=== PATIENT | female | born 2005 | race Caucasian/White ===

== ENCOUNTER 2023-08-30 19:55 | Emergency (ER) | payer BC, SELFPAY ==
[2023-08-30 20:01] VITALS: BP 109/72; PULSE 63; RESP 16; TEMP 36.9; O2SAT 100
--- NOTE | 2023-08-30 20:08 | ED.URI ---
HPI - URI/Sore Throat General Chief Complaint: Upper Respiratory Infection Stated Complaint: CHEST PAIN/LIGHT HEADED/NAUSEA Time Seen by Provider: 08/30/23 20:08 Source: patient Mode of arrival: ambulatory Limitations: no limitations History of Present Illness HPI Narrative: 18 yo F presents with c/o upset stomach, headache, nausea, fatigue, chills, feverish, pain to center of chest all day. Took ibuprofen approx. 2 hrs ago. States if she holds her hand against her chest it makes her feel better. Denies SOB. hx of sports induced asthma. took inhaler prior to soccer practice today but never experienced any asthma complications. Denies congestion, sore throat and cough. States notices CP more when sitting. Attended soccer practice tonight and states had no CP there. All systems reviewed and negative except as noted above. Related Data Home Medications Medication Instructions Recorded Confirmed albuterol sulfate 90 mcg/actuation 2 puff inhalation PRN PRN Wheezing 08/30/23 08/30/23 aerosol inhaler (Ventolin HFA) Allergies Allergy/AdvReac Type Severity Reaction Status Date / Time No Known Allergies Allergy Verified 08/30/23 20:07 Review of Systems Review of Systems: CONSTITUTIONAL: Reports fever, chills, or sweats. EYES: Denies visual changes, redness, or discharge. ENT: Denies rhinorrhea, congestion, sore throat, or otalgia. CARDIOVASCULAR: Denies chest pain, palpitations, or edema. RESPIRATORY: Denies cough or dyspnea. GASTROINTESTINAL: Denies abdominal pain. Reports upset stomach, nausea. Denies vomiting, or diarrhea. GENITOURINARY: Denies dysuria or hematuria. SKIN: Denies rash or itching. MUSCULOSKELETAL: Denies back pain, joint pain, or myalgia. NEUROLOGIC: Reports headache. Denies numbness, or weakness. PSYCHIATRIC: Denies anxiety or depression. All other systems reviewed are negative, except as documented in HPI. PMFSH Comments At time of signature, agree with nursing past medical, surgical, social and family history. There is no relevant family history pertinent to the presenting complaint. Exam Narrative: GENERAL: This is a well-nourished, well-developed patient, in no apparent distress. HEAD: normocephalic, atraumatic. EYES: PERRL. Sclera clear/white. Vision is grossly intact. EARS: External ears normal, auditory canals clear and without drainage, TMs normal without perforation. Hearing grossly intact. NOSE: External nose normal with no obvious nasal discharge, nares without redness, no rhinorrhea. THROAT: Mucous membranes moist, posterior pharynx clear. NECK: Neck supple, non-tender without lymphadenopathy, masses or thyromegaly. CARDIOVASCULAR: Regular rate and rhythm without murmurs, gallops, or rubs. RESPIRATORY: Clear to auscultation. Breath sounds equal bilaterally. No wheezes, rales, or rhonchi. SKIN: warm, Dry, intact with no suspicious lesions or rash, good texture and turgor. NEURO: awake, alert, and oriented to person, place and time. There were no obvious focal neurologic abnormalities. EXTREMITIES: No joint tenderness, effusion, or edema noted. Course Course Level of Care: Express Care Visit Vital Signs Vital signs: Vital Signs Temperature 36.9 C 08/30/23 20:01 Pulse Rate 63 08/30/23 20:01 Respiratory Rate 16 08/30/23 20:01 Blood Pressure 109/72 08/30/23 20:01 Pulse Oximetry 100 08/30/23 20:01 Temperature 36.9 C 08/30/23 20:01 Pulse Rate 63 08/30/23 20:01 Respiratory Rate 16 08/30/23 20:01 Blood Pressure 109/72 08/30/23 20:01 Pulse Oximetry 100 08/30/23 20:01 Oxygen Delivery Room Air 08/30/23 20:03 Reviewed MDM - URI/Sore Throat MDM Narrative Medical decision making narrative: Patient is aware of diagnosis, understands and agrees to treatment plan. Anticipatory guidance given. Patient agrees to follow-up as directed and is aware of reasons to seek care at the emergency department. Portions of this record may have bee
--- NOTE | 2023-08-30 20:12 | ECG_ITS ---
Measurements Intervals [place] Rate: 72 P: -5 DE: 150 QRS: 18 QRSD: 109 T: 35 QT: 372 QTc: 407 Interpretive Statements SINUS RHYTHM NORMAL ECG NO PREVIOUS ECG AVAILABLE FOR COMPARISON Electronically Signed On 08-31-2023 12:20:26 EDUCATIONAL AUDIOLOGIST by Bryce Martin M.D.
--- NOTE | 2023-08-30 20:15 | PC.NURSE ---
PT REPORTS HER HEART HAS BEEN FEELING LIKE IT IS BEATING FAST AND THROBBING ALL DAY WORSE WHEN SHE IS AT REST. PT REPORTS SHE WAS ABLE TO COMPLETE SOCCER PRACTICE AND DID NOT NOTICE IT.
== END 2023-08-30 20:24 | disposition home or self-care (01) ==
PROVIDERS: Emergency Provider Nurse Practitioner Family
DX: B34.9 Viral infection, unspecified (principal); Z20.822 Contact with and (suspected) exposure to COVID-19; J45.990 Exercise induced bronchospasm
CPT/HCPCS: 87426; 87804; 93005; 99213; G0463